=== PATIENT | male | born 1955 | race Caucasian/White ===

== ENCOUNTER 2019-04-21 10:09 | Emergency (ER) | payer OTHER, SELFPAY ==
[2019-04-21 10:10] VITALS: BP 151/80; PULSE 72; RESP 17; TEMP 36.6; O2SAT 100; BMI 31.4
--- NOTE | 2019-04-21 10:13 | ED_ITS ---
HPI - Eye Problem General: Chief complaint: Eye Problems Stated complaint: Eye pain Time Seen by Provider: 04/21/19 10:12 Source: patient Mode of arrival: ambulatory Limitations: no limitations History of Present Illness: HPI Narrative: Patient comes in today for complaints of right eye pain and headache for one week. Patient reports pressure in the periorbital area of the right eye. Patient reports 1 week ago he had a visual change in the right eye that has seemed to have cleared to some extent but has some areas of visual abnormality. Patient is awaiting creative technologist follow-up appointment. Patient comes in today due to increased discomfort and pain to the right eye. Patient was seen last night in urgent care and [place] and was recommended to come to the ER for uncontrolled pain. Patient appears well. Patient appears in mild pain. chief complaint: eye pain Associated symptoms: Reports headache(s) Review of Systems General: Reports: 10 or more systems reviewed and unremarkable except in HPI and below Eyes: Reports: eye discomfort Neuro: Reports: headache PFSH ED PFSH: Statuses (acute, chronic, etc) shown below reflect problem list status as previously entered and may not be historically accurate Social History Smoking and tobacco status: never smoked Alcohol intake: current Alcohol intake frequency: holidays/special occasions only Physical Exam Const: COMMON NORMALS: no apparent distress and oriented x3 GENERAL APPEARANCE: cooperative HENMT: COMMON NORMALS: normocephalic, external ears normal, EAC's normal, TM's normal bilaterally and external nose normal HEAD & SCALP: normal to inspection and normocephalic FACE & SINUS: normal facial exam NOSE: external nose normal GENERAL EAR: hearing not grossly impaired EXTERNAL EAR: Yes external ears normal EXTERNAL AUDITORY CANAL: EAC's normal TYMPANIC MEMBRANE: TM's normal bilaterally MOUTH: oral and palatal mucosa normal THROAT: posterior oropharynx normal Eye: COMMON NORMALS: PERRL, EOMs intact bilaterally and conjunctivae normal GENERAL EYE: normal appearance of both eyes and normal light reflex ALIGNMENT: Yes alignment normal PERIORBITAL: periorbital findings normal EYELID: eyelids normal CONJUNCTIVA: Yes conjunctivae normal SCLERA: sclerae normal CORNEA: Yes corneas normal PUPIL: Yes PERRL DIRECT OPHTHALMOSCOPY: Yes normal light reflex OTHER: ocular pressure measured at 19 per electronic tonimeter Neck/C-Spine: COMMON NORMALS: full ROM and no lymphadenopathy Lymph: LYMPHATIC: no lymphedema noted Chest: COMMONS NORMALS: inspection of chest normal and palpation of chest normal Resp: COMMON NORMALS: normal respiratory effort and clear to auscultation bilaterally AUSCULTATION: clear to auscultation bilaterally Cardio: COMMON NORMALS: regular rate and regular rhythm RATE: regular rate RHYTHM: regular rhythm GI: COMMON NORMALS: normal to inspection, nondistended, normoactive bowel sounds and non-tender : COMMON NORMALS: Yes no CVA tenderness BLADDER/KIDNEY EXAM: Yes no CVA tenderness Back/Pelvis: COMMON NORMALS: no CVA tenderness and thoracic and lumbar spine normal to inspection Extremity: COMMON NORMALS: normal to inspection GENERAL: No edema Neuro: COMMON NORMALS: oriented x3, moves all extremities and no focal motor deficits Psych: COMMON NORMALS: mental status grossly normal and cooperative Skin: COMMON NORMALS: no rashes or lesions noted GENERAL SKIN EXAM: no rashes or lesions noted Course ED course: 1125, reviewed with patient, patient reports improvement in pain, discussed labs and recommendation for f/u with eye ocular care technologist, agreed for appointment with for further evaluation Vital Signs: Vital signs: Vital Signs Temperature 97.8 F 04/21/19 10:10 Pulse Rate 63 04/21/19 10:17 Respiratory Rate 16 04/21/19 10:17 Blood Pressure 154/95 04/21/19 10:17 Pulse Oximetry 98 04/21/19 10:17 MDM - Eye Problem MDM Narrative: Medical decision making narrative: Patient comes in today for complaints of right eye pain. Patient reports last week he noticed some visual disturbance and was [facility] the [place]. Patient last night had some increasing discomfort to the right eye and went to urgent care in [place]. They evaluated him and thought he might have some increased pressure in the right eye recommended that if the pain got worse he should go to the emergency department. Exam notes pupils are equal and reactive. Patient has normal ocular motor movement. Cornea appears intact and clear. Sclera is white. Fundus exam notes normal vasculature no obvious retinal detachment is noted. Ocular pressure is 19 per electronic tonometer. Respirations are even lungs are clear to auscultation. Skin is warm and dry and color is pink. Differential diagnosis includes retinal detachment, ocular stroke, ocular migraine, tumor/cancer, macular degeneration. Laboratory values were insignificant. CT of the head noted no tumor or mass and no signs of any abnormality in the skull. Patient was given Benadryl and Reglan with some improvement of overall headache and pain. Reviewed exam with patient talked with case management and arrange for ophthalmology follow-up on Wednesday with Dr. Parker. Patient and family were resistant to seeing Dr. Parker due to previous negative interaction, but agreed to the appointment in order to get seen sooner. Recommended medication for pain and follow-up with primary care for further treatment. Patient reported understanding agreed to plan. Lab Data: Labs: Lab Results 04/21/19 04/21/19 Range/Units 10:37 10:37 WBC 8.4 (4.0-10.0) 10^3/ uL RBC 5.16 (4.1-5.3) 10^6/u L Hgb 14.3 (11.7-16.6) g/dL Hct 42.9 (42.0-52.0) % MCV 83.1 (80-94) fL MCH 27.7 L (28.0-34.0) pg MCHC 33.3 (30.0-36.0) g/dL RDW 12.5 (12.1-15.1) % Plt Count 260 (130-400) 10^3/c mm MPV 10.5 H (7.4-10.4) fL Neut % (Auto) 52.0 % Lymph % (Auto) 38.0 % [place] % (Auto) 6.5 % Eos % (Auto) 2.7 % Baso % (Auto) 0.4 % Neut # (Auto) 4.4 (1.8-7.7) 10^3/u L Lymph # (Auto) 3.2 (0.8-4.8) 10^3/u L [place] # (Auto) 0.6 (0.2-0.9) 10^3/u L Eos # (Auto) 0.2 (0.0-0.8) 10^3/u L Baso # (Auto) 0.0 (0.0-0.1) 10^3/u L Nucleated RBC % (a uto) 0 % Nucleated RBCs # 0.0 /100WBC Sodium 140 (136-145) mmol/L Potassium 4.3 (3.5-5.1) mmol/L Chloride 101 (98-107) mmol/L Carbon Dioxide 27 (22-29) mmol/L Anion Gap 16.3 (5-19) BUN 15 (8-23) mg/dL Creatinine 0.8 (0.7-1.2) mg/dL GFR Calculation 98.3 (90-130) mL/min Glucose 112 H (74-106) mg/dL Calcium 9.6 (8.8-10.2) mg/Dl Discharge Plan Discharge Patient Disposition: Home, Self-Care Clinical Impression: Acute right eye pain Condition: Stable Prescriptions: New hydrocodone-acetaminophen 5-325 mg tablet 1 tab PO Q8H PRN (Reason: pain) Qty: 10 RF: 0 No Action omeprazole 10 mg capsule,delayed release(DR/EC) 10 mg PO ONCE RF: 0 meloxicam 15 mg Tablet 15 mg PO DAILY RF: 0 cyclobenzaprine 5 mg Tablet 5 mg PO TID PRN (Reason: Spasms) RF: 0 Discharge Orders: Discharge Order (Routine); Ordered 04/21/19 Ordered By: Hernesto Munguia Referrals: Yann Parker MD [Physician] - 04/27/19 3:45 pm Ron Lara DO [Primary Care Provider] - Discharge Diet: Usual diet Discharge Activity: Resume usual activity Activity Restrictions/Additional Instructions: Drink plenty of water Activity as tolerated Healthy diet Follow-up with eye ocular care technologist at soonest appointment Return to ER for worsening pain or new concerns Coding Level of Care Code ED Turf Keeper for Estuardo Fwd Exam Problem Focused
[2019-04-21 10:17] VITALS: BP 154/95; PULSE 63; RESP 16; O2SAT 98
--- NOTE | 2019-04-21 10:25 | CT_ITS ---
WS: [id number] CT scan of the head, 04/21/2019 Clinical Data: headache, right eye pain Comparison: None. DLP: 873.[address] scans at [facility] use at least one of these dose optimization techniques: automat ed exposure control; mA and/or kV adjustment per patient size (includes targeted exams where dose is matched to clinical indication); or iterative reconstruction. Findings: The ventricular system is moderately dilated without shift. No recent infarct or hemorrhage is seen. There are no abnormal intracerebral masses. The cerebellum and brainstem are not remarkable. Bony windows of the skull and skull base show no fractures or erosions. The mastoid air cells, internet network specialist al auditory canals, sella turcica, intraorbital contents, and paranasal sinuses are unremarkable. CT/CT head wo con* [id number] Impression: Negative CT scan of the head
--- NOTE | 2019-04-21 10:39 | PC.NURSE ---
Patient to CT/Radiology at this time for ordered imaging.
[2019-04-21 10:42] LABS: Basophils % 0.4 %; Eosinophils # 0.2 10^3/uL (0.0-0.8); Eosinophils % 2.7 %; Hematocrit 42.9 % (42.0-52.0); Hemoglobin 14.3 g/dL (11.7-16.6); Lymphocytes # 3.2 10^3/uL (0.8-4.8); Mean Corpuscular HGB Conc 33.3 g/dL (30.0-36.0); Mean Corpuscular Hemoglobin 27.7 pg (28.0-34.0); Mean Corpuscular Volume 83.1 fL (80-94); Mean Platelet Volume 10.5 fL (7.4-10.4); Monocytes # 0.6 10^3/uL (0.2-0.9); Monocytes % 6.5 %; Neutrophils # 4.4 10^3/uL (1.8-7.7); Nucleated Red Blood Cells % 0 %; Platelet Count 260 10^3/cmm (130-400); Red Blood Count 5.16 10^6/uL (4.1-5.3); Red Cell Distribution Width 12.5 % (12.1-15.1); White Blood Count 8.4 10^3/uL (4.0-10.0)
--- NOTE | 2019-04-21 10:46 | PC.NURSE ---
Patient returned to room from CT at this time.
[2019-04-21] MEDS: tetracaine 0.5% Op Soln 4 mL Btl 1 DROP EYE-RIGHT (10:47)
[2019-04-21] MEDS: diphenhydrAMINE 50 mg/mL SDV 1mL 25 MG IVP (10:48)
[2019-04-21] MEDS: metoclopramide 5 mg/mL SDV 2 mL 10 MG IVP (10:50)
[2019-04-21 11:03] LABS: Anion Gap 16.3 (5-19); Blood Urea Nitrogen 15 mg/dL (8-23); Calcium 9.6 mg/Dl (8.8-10.2); Carbon Dioxide 27 mmol/L (22-29); Chloride 101 mmol/L (98-107); Glomerular Filtration Rate 98.3 mL/min (90-130); Glucose 112 mg/dL (74-106); Potassium 4.3 mmol/L (3.5-5.1); Sodium 140 mmol/L (136-145)
--- NOTE | 2019-04-21 11:48 | DCPLANNER ---
manager books was asked to schedule a follow up appointment for patient with Dr. Parker. manager books the clinic of Dr. Parker, spoke with Christine, a follow up appointment is scheduled for , April 27, 2019 at 3:[address] Parker. manager books informed physician, and patient of scheduled appointment. manager books also [facility] to inform her that patient had been seen in the ER and appointment information.
[2019-04-21 11:51] VITALS: BP 135/81; PULSE 74; RESP 16; O2SAT 98
--- NOTE | 2019-05-09 10:49 | DCPLANNER ---
Appointment scheduled for 04.27.19 was cancelled.
== END 2019-04-21 11:52 | disposition home or self-care (01) ==
PROVIDERS: Emergency Provider Nurse Practitioner Family; Family Provider Emergency Medicine Emergency Medical Services; PCP Emergency Medicine Emergency Medical Services
DX: H57.11 Ocular pain, right eye (principal)
CPT/HCPCS: 70450; 80048; 85025; 96374; 99281; J1200; J2765

== ENCOUNTER 2019-05-31 14:11 | Outpatient (RCR) | payer OTHER, SELFPAY | END 2019-06-03 23:59 | disposition home or self-care (01) | LOC: SPT 14:11 | PROVIDERS: Family Provider Emergency Medicine Emergency Medical Services; PCP Emergency Medicine Emergency Medical Services; Referring Provider Specialist; Visit Provider Specialist | DX: Z47.89 Encounter for other orthopedic aftercare (principal); M75.111 Incomplete rotator cuff tear or rupture of right shoulder, not specified as traumatic; M25.511 Pain in right shoulder; M25.611 Stiffness of right shoulder, not elsewhere classified | CPT/HCPCS: 97110; 97161 ==

== ENCOUNTER 2019-06-04 06:00 | Outpatient (RCR) | payer OTHER, SELFPAY | END 2019-07-04 23:59 | disposition home or self-care (01) | LOC: SPT 06:00 | PROVIDERS: Family Provider Emergency Medicine Emergency Medical Services; PCP Emergency Medicine Emergency Medical Services; Referring Provider Specialist; Visit Provider Specialist | DX: M75.101 Unspecified rotator cuff tear or rupture of right shoulder, not specified as traumatic (principal) | CPT/HCPCS: 97110 ==

== ENCOUNTER → 2019-06-06 09:03 | Outpatient (BNVA) | payer OTHER, SELFPAY | PROVIDERS: Family Provider Emergency Medicine Emergency Medical Services; PCP Emergency Medicine Emergency Medical Services; Visit Provider Specialist | DX: G40.909 Epilepsy, unspecified, not intractable, without status epilepticus (principal) | CPT/HCPCS: 99212 ==

== ENCOUNTER 2019-07-05 06:00 | Outpatient (RCR) | payer OTHER, SELFPAY | END 2019-08-03 23:59 | disposition home or self-care (01) | LOC: SPT 06:00 | PROVIDERS: Family Provider Emergency Medicine Emergency Medical Services; PCP Emergency Medicine Emergency Medical Services; Referring Provider Specialist; Visit Provider Specialist | DX: M75.101 Unspecified rotator cuff tear or rupture of right shoulder, not specified as traumatic (principal) | CPT/HCPCS: 97110 ==

== ENCOUNTER 2019-10-16 10:09 | Outpatient (CLI) | payer OTHER, SELFPAY ==
--- NOTE | 2019-10-16 10:15 | XR_ITS ---
WS: [id number] Left knee, 3 views, 10/16/2019 Clinical Data: fracture Comparison: Left knee, 09/21/2019 Findings: No fractures or dislocations are seen. The joint spaces are normal. The patella is intact. The soft t issues are unremarkable. There is a probable ligamentous calcification at the anterior superior aspect of the patella deandre saucedo XR/XR knee LT 3V* [id number] Impression: Negative left knee.
== END 2019-10-16 10:10 | disposition home or self-care (01) ==
LOC: RAD 10:11
PROVIDERS: PCP Emergency Medicine Emergency Medical Services; Visit Provider Specialist
DX: S82.002A Unspecified fracture of left patella, initial encounter for closed fracture (principal); X58.XXXA Exposure to other specified factors, initial encounter
CPT/HCPCS: 73562

== ENCOUNTER → 2019-11-23 14:00 | Outpatient (BNVA) | payer OTHER, SELFPAY | PROVIDERS: PCP Emergency Medicine Emergency Medical Services; Visit Provider Nurse Practitioner Family | DX: R05 Cough (principal); R09.81 Nasal congestion; R51 Headache; R53.83 Other fatigue | CPT/HCPCS: 87635 ==

== ENCOUNTER → 2021-01-06 11:06 | Outpatient (BNVA) | payer OTHER, SELFPAY | PROVIDERS: PCP Emergency Medicine Emergency Medical Services; Referring Provider Emergency Medicine Emergency Medical Services; Visit Provider Specialist | DX: M19.012 Primary osteoarthritis, left shoulder (principal) | CPT/HCPCS: 73030 ==

== ENCOUNTER 2021-05-16 15:37 | Outpatient (CLI) | payer OTHER, SELFPAY ==
--- NOTE | 2021-05-16 15:49 | MRR_ITS ---
PROCEDURE INFORMATION: Exam: MR Left Upper Extremity Joint Without Contrast; Shoulder Exam date and time: 05/16/2021 3:49 PM Age: 66 years old Clinical indication: Pain; Shoulder; Left; Additional info: M75.42 - impingement syndrome of left shoulder TECHNIQUE: Imaging protocol: MR of the Left upper extremity without contrast. Exam focused on the shoulder. COMPARISON: CR XR shoulder LT min 2V* [id number] 01/06/2021 11:13 AM FINDINGS: Bones and cartilage: Glenohumeral joint is intact. No joint effusion. No osteochondral lesion. Joint spaces: Acromioclavicular joint demonstrates hypertrophic changes with inferior osteophyte formation. This narrows the subacromial space and increases the risk of rotator cuff impingement. Glenoid labrum: Unremarkable. No evidence of tear. Supraspinatus tendon: Abnormal increased signal demonstrated in the supraspinatus tendon, consistent with tendinosis. There is a linear 5 mm intrasubstance tear of the distal supraspinatus tendon, best demonstrated on sagittal T2 fat sat series 601, image 18. No retraction of the musculotendinous junction. Infraspinatus tendon: Infraspinatus tendon demonstrates tendinosis. No tear. Subscapularis tendon: Unremarkable. No evidence of tear. Teres minor tendon: Unremarkable. No evidence of tear. Tendon of biceps brachii: Tendon of the long head of the biceps demonstrates fluid in the tendon sheath, suggesting tenosynovitis. No biceps tendon tear. Glenohumeral ligaments: Unremarkable. Muscles: Unremarkable. Soft tissues: Unremarkable. MR/MR shoulder LT wo con* [id number] IMPRESSION: 1. Acromioclavicular joint demonstrates hypertrophic changes with inferior osteophyte formation. This narrows the subacromial space and increases the risk of rotator cuff impingement. 2. Abnormal increased signal demonstrated in the supraspinatus tendon, consistent with tendinosis. There is a linear 5 mm intrasubstance tear of the distal supraspinatus tendon, best demonstrated on sagittal T2 fat sat series 601, image 18. No retraction of the musculotendinous junction. 3. Tendon of the long head of the biceps demonstrates fluid in the tendon sheath, suggesting tenosynovitis. No tendon tear.
== END 2021-05-16 15:38 | disposition home or self-care (01) ==
LOC: RAD 15:42
PROVIDERS: PCP Emergency Medicine Emergency Medical Services; Visit Provider Specialist
DX: M75.42 Impingement syndrome of left shoulder (principal)
CPT/HCPCS: 73221

== ENCOUNTER 2022-01-07 06:00 | Outpatient (RCR) | payer OTHER, SELFPAY | END 2022-01-21 23:59 | disposition home or self-care (01) | LOC: SPT 06:00 | PROVIDERS: PCP Emergency Medicine Emergency Medical Services; Visit Provider Emergency Medicine Emergency Medical Services | DX: H81.10 Benign paroxysmal vertigo, unspecified ear (principal) | CPT/HCPCS: 95992; 97112; 97162 ==

== ENCOUNTER 2023-08-02 10:05 | Outpatient (CLI) | payer OTHER, SELFPAY ==
--- NOTE | 2023-08-02 10:08 | CT_ITS ---
WS: [id number] CT CERVICAL SPINE HISTORY: HEADACHES COMING IN FROM NECK TECHNIQUE: Contiguous 2.0 mm axial imaging performed through the entire cervical spine. Sagittal and coronal reformats also performed. [facility] use at least one of these dose o ptimization techniques: automated exposure control; mA and/or kV adjustment per patient size (include s targeted exams where dose is matched to clinical indication); or iterative reconstruction. DLP: 363.37 mGy.cm COMPARISON: None available. Anterior cervical fusion from C5-C7. Interbody spacers at C5-6 and C6-7. Fusion across the disc space s. No acute fracture. Mild diffuse spondylitic changes. Craniocervical junction is normal. C2-C3: Osteophytic ridging and bilateral facet joint arthritis. Very mild foraminal narrowing. C3-C4: Tiny central disc protrusion. Bilateral facet arthritis. Moderate foraminal stenosis predomina nt due to osteophyte disease. C4-C5: Moderate bilateral facet joint arthritis. Moderate foraminal narrowing, RIGHT greater than LEF T. C5-C6: Osteophytic ridging with bilateral facet arthritis. Moderate LEFT stenosis. C6-C7: Osteophytic ridging. No stenosis. C7-T1: Normal. Asymmetric soft tissue LEFT oral pharynx. Near obliteration of the vallecula. Hydes tonsil appears prominent. CT/CT cervical spin wo con* [id number] IMPRESSION: 1. Status post anterior cervical fusion with interbody spacers from C5-C7 appe ars intact. Fusion across the spacers. 2. Multilevel facet joint arthritis and foraminal stenosis as above. The most significant foraminal stenosis is moderate at C3-4, C4-5 and on the LEFT at C5- 6. 3. Asymmetric soft tissue in the LEFT oropharynx at the level of the Hy[place] tonsil. Recommend follow-up neck CT with IV contrast to exclude neoplasm.
== END 2023-08-02 10:06 | disposition home or self-care (01) ==
LOC: RAD 10:05
PROVIDERS: PCP Emergency Medicine Emergency Medical Services; Visit Provider Emergency Medicine Emergency Medical Services
DX: R51.9 Headache, unspecified (principal); M47.812 Spondylosis without myelopathy or radiculopathy, cervical region; M48.02 Spinal stenosis, cervical region; Z98.1 Arthrodesis status
CPT/HCPCS: 72125

== ENCOUNTER 2023-08-19 09:06 | Outpatient (CLI) | payer OTHER, SELFPAY ==
--- NOTE | 2023-08-19 09:12 | CT_ITS ---
WS: [id number] CT NECK TECHNIQUE: Contrast-enhanced CT of the neck with coronal and sagittal reformatted images. CLINICAL INFORMATION: ORPHARNYX ABNORMALITY ON CT C-SPINE COMPARISON: CT 08/02/2023 DLP: 191.[address] scans at [facility] use at least one of these dose optimization techniques: automated e xposure control; mA and/or kV adjustment per patient size (includes targeted exams where dose is matc hed to clinical indication); or iterative reconstruction. FINDINGS: Dental artifact degrades some images at the tongue base. Mild thickening in the LEFT oropharynx at th e level of the [place] tonsil asymmetric compared to the RIGHT. Slight effacement of the LEFT vallec bradley. Prominent uvula. No focal enhancing lesion but recommend further evaluation with endoscopy to ex clude underlying tonsillar lesion. Normal piriform sinuses. Normal subglottic airway. Thyroid gland appears normal. Lung apices are well aerated. Mastoid air cells are well aerated. Paranasal sinuses are well aerated. Normal submandibular glands a nd parotid glands. No cervical lymphadenopathy. Prior postoperative changes ACDF C5-C7. CT/CT neck w con* [id number] IMPRESSION: 1. Again seen is asymmetric soft tissue thickening involving the LEFT orophary nx extending to the LEFT [place] tonsil. Slight effacement of the LEFT vallecu la with prominent uvula. Recommend further evaluation with endoscopy to exclude underlying tonsillar lesion. 2. No cervical lymphadenopathy.
[2023-08-19] MEDS: iohexol 300 mg/mL 100 mL Btl IV (09:37)
== END 2023-08-19 09:07 | disposition home or self-care (01) ==
LOC: RAD 09:07
PROVIDERS: PCP Emergency Medicine Emergency Medical Services; Visit Provider Emergency Medicine Emergency Medical Services
DX: J39.2 Other diseases of pharynx (principal); J38.7 Other diseases of larynx; J35.8 Other chronic diseases of tonsils and adenoids
CPT/HCPCS: 70491; Q9967

== ENCOUNTER 2023-11-03 09:25 | Outpatient (CLI) | payer OTHER, SELFPAY ==
--- NOTE | 2023-11-03 09:26 | FL_ITS ---
WS: [id number] Barium swallow and esophagram, 11/03/2023 Clinical Data: COUGH/DYSPHAGIA,PHARYNGEAL PHASE/GERD Comparison: None. Fluoroscopy time: 1min [id number] # of spot films: 22 Findings: The patient swallowed the thick and thin barium, and it flowed through the hypopharynx without hesita tion. No stricture, mass, polyp or erosion was seen. There is an anterior cervical disc fusion C5-C7 The barium entered the esophagus and there was normal motility throughout. There was a moderate hiata l hernia with moderate reflux. No ulcer, mass, polyp, erosion or fistula was seen. The barium passed normally into the stomach. FL/FL barium swallow [id number] Impression: Moderate hiatal hernia with moderate reflux.
== END 2023-11-03 09:26 | disposition home or self-care (01) ==
LOC: RAD 09:25
PROVIDERS: PCP Nurse Practitioner Family; Visit Provider Otolaryngology
DX: R13.13 Dysphagia, pharyngeal phase (principal); K21.9 Gastro-esophageal reflux disease without esophagitis; K44.9 Diaphragmatic hernia without obstruction or gangrene
CPT/HCPCS: 74220

== ENCOUNTER 2023-11-15 10:07 | Outpatient (CLI) | payer OTHER, SELFPAY ==
--- NOTE | 2023-11-15 10:25 | FL_ITS ---
WS: [id number] EXAMINATION: FL barium swallow modifd [id number] ORDER DATE: 11/15/2023 10:30 AM REASON FOR EXAM: Other dysphagia COMPARISON: None available. FLUOROSCOPY TIME: 1min [id number] # OF SPOT FILMS: 1 FINDINGS: There is good oral motor control. The swallowing mechanism is intact. All consistencies were ingested safely. There is no penetration. There is no aspiration FL/FL barium swallow modifd [id number] IMPRESSION: Intact swallowing mechanism. No penetration or aspiration was seen.
== END 2023-11-15 10:08 | disposition home or self-care (01) ==
LOC: RAD 10:08
PROVIDERS: PCP Nurse Practitioner Family; Visit Provider Otolaryngology
DX: R13.19 Other dysphagia (principal)
CPT/HCPCS: 74230; 92611

== ENCOUNTER → 2024-02-16 07:50 | Outpatient (BNVA) | payer OTHER, SELFPAY | PROVIDERS: PCP Nurse Practitioner Family; Referring Provider Nurse Practitioner Family; Visit Provider Nurse Practitioner Family | DX: D48.5 Neoplasm of uncertain behavior of skin (principal); L57.0 Actinic keratosis; L82.1 Other seborrheic keratosis; L81.4 Other melanin hyperpigmentation; L57.8 Other skin changes due to chronic exposure to nonionizing radiation; D22.5 Melanocytic nevi of trunk; L91.8 Other hypertrophic disorders of the skin | CPT/HCPCS: 11102; 17000; 99203 ==

== ENCOUNTER → 2024-03-17 08:02 | Outpatient (BNVA) | payer OTHER, SELFPAY | PROVIDERS: PCP Nurse Practitioner Family; Visit Provider Dermatology | DX: C44.329 Squamous cell carcinoma of skin of other parts of face (principal) | CPT/HCPCS: 13132; 17311 ==

== ENCOUNTER → 2024-08-15 08:52 | Outpatient (BNVA) | payer OTHER, SELFPAY | PROVIDERS: PCP Nurse Practitioner Family; Visit Provider Nurse Practitioner Family | DX: L81.4 Other melanin hyperpigmentation (principal); L91.8 Other hypertrophic disorders of the skin; L57.8 Other skin changes due to chronic exposure to nonionizing radiation; X32.XXXA Exposure to sunlight, initial encounter; L82.1 Other seborrheic keratosis; Z08 Encounter for follow-up examination after completed treatment for malignant neoplasm; Z85.828 Personal history of other malignant neoplasm of skin | CPT/HCPCS: 99213 ==

== ENCOUNTER 2024-08-31 07:27 | Outpatient (RCR) | payer OTHER, SELFPAY | END 2024-09-02 23:55 | disposition home or self-care (01) | LOC: SPT 07:27 | PROVIDERS: Visit Provider Nurse Practitioner Family | DX: M54.50 Low back pain, unspecified (principal) | CPT/HCPCS: 97110; 97161 ==

== ENCOUNTER 2024-09-03 06:30 | Outpatient (RCR) | payer OTHER, SELFPAY | END 2024-10-02 23:59 | disposition home or self-care (01) | LOC: SPT 06:30 | PROVIDERS: Visit Provider Nurse Practitioner Family | DX: M54.50 Low back pain, unspecified (principal) | CPT/HCPCS: 97110 ==

== ENCOUNTER 2024-10-03 05:00 | Outpatient (RCR) | payer OTHER, SELFPAY | END 2024-11-02 23:59 | disposition home or self-care (01) | LOC: SPT 05:00 | PROVIDERS: Visit Provider Nurse Practitioner Family | DX: M54.50 Low back pain, unspecified (principal) | CPT/HCPCS: 97110 ==

== ENCOUNTER → 2025-02-15 07:59 | Outpatient (BNVA) | payer OTHER, SELFPAY | PROVIDERS: Visit Provider Nurse Practitioner Family | DX: L82.1 Other seborrheic keratosis (principal); L57.8 Other skin changes due to chronic exposure to nonionizing radiation; X32.XXXA Exposure to sunlight, initial encounter; L81.4 Other melanin hyperpigmentation; L91.8 Other hypertrophic disorders of the skin; Z08 Encounter for follow-up examination after completed treatment for malignant neoplasm; Z85.828 Personal history of other malignant neoplasm of skin; L57.0 Actinic keratosis | CPT/HCPCS: 17000; 99213 ==